=== PATIENT | female | born 1990 | race Two or more races ===

== ENCOUNTER 2022-06-18 10:26 | Observation (INO) | payer MEDICAID ==
[2022-06-18 12:09] LABS: Basophils # (auto) 0 10 ^3/uL (0-0.2); Basophils % (auto) 0.2 % (0.0-2.0); Eosinophils # (auto) 0.1 10 ^3/uL (0-0.8); Eosinophils % (auto) 0.7 % (0.0-7.0); Hematocrit 29.3 % (36.0-46.0); Hemoglobin 10.3 g/dL (12.2-16.2); Lymphocytes # (auto) 1.8 10 ^3/uL (0.4-5.4); Lymphocytes % (auto) 16.4 % (10.0-50.0); Mean Corpuscular Hgb Conc. 35.3 g/dL (32.0-36.0); Mean Corpuscular Volume 87.8 fL (80.0-100.0); Monocytes # (auto) 0.5 10 ^3/uL (0-1.3); Monocytes % (auto) 4.4 % (0.0-12.0); Neutrophils # (auto) 8.6 10 ^3/uL (1.6-8.6); Neutrophils % (auto) 78.3 % (37.0-80.0); Nucleated Red Blood Cells % 0.1 %; Red Blood Cells 3.33 10^6/uL (4.0-5.20)
[2022-06-18 12:20] LABS: INR 0.92 (0.9-1.15); Partial Thromboplastin Time 24.2 sec (24.6-33.4)
[2022-06-18 12:23] LABS: Urine Bacteria NONE SEEN /hpf (None Seen); Urine Blood 1+ /uL (Negative); Urine Specific Gravity 1.008 (1.001-1.035); Urine WBC 3 /hpf (0 - 5)
[2022-06-18 12:45] LABS: Albumin 2.7 g/dL (3.4-5.0); Calcium 8.9 mg/dL (8.5-10.1); Potassium 4.1 mmol/L (3.5-5.1)
[2022-06-18 12:50] LABS: BUN/Creatinine Ratio 21.7; Bilirubin, Total 0.4 mg/dL (0.2-1.0); Total Protein 6.8 g/dL (6.4-8.2); Uric Acid 7.3 mg/dL (2.6-6.0)
[2022-06-18 12:51] LABS: Protein, Urine 193.6 mg/dL (0.0-11.9)
== END 2022-06-18 16:12 | disposition home or self-care (01) ==
LOC: LDRP 10:26 → UNDOADMOB 10:26 → LDRP 10:32
PROVIDERS: ADMIT Obstetrics & Gynecology Obstetrics; ATTEND Obstetrics & Gynecology Obstetrics
DX: O10.912 Unspecified pre-existing hypertension complicating pregnancy, second trimester (principal); O11.2 Pre-existing hypertension with pre-eclampsia, second trimester; Z3A.23 23 weeks gestation of pregnancy
CPT/HCPCS: 36415; 59025; 80053; 81001; 82570; 84156; 84550; 85025; 85610; 85730; 94760; G0378

== ENCOUNTER 2022-06-20 08:33 | Observation (INO) | payer MEDICAID ==
[2022-06-20 10:46] LABS: Protein, Urine 29.8 mg/dL (0.0-11.9)
[2022-06-20 11:35] LABS: Protein, Urine 34.9 mg/dL (0.0-11.9)
== END 2022-06-20 11:10 | disposition home or self-care (01) ==
LOC: LDRP 08:33
PROVIDERS: ADMIT Obstetrics & Gynecology; ATTEND Obstetrics & Gynecology
DX: O13.2 Gestational [pregnancy-induced] hypertension without significant proteinuria, second trimester (principal); O99.332 Smoking (tobacco) complicating pregnancy, second trimester; F17.200 Nicotine dependence, unspecified, uncomplicated; Z3A.23 23 weeks gestation of pregnancy
CPT/HCPCS: 82570; 84156; G0378; 59025; 81002

== ENCOUNTER 2022-06-25 09:09 | Observation (INO) | payer MEDICAID | END 2022-06-25 18:06 | disposition home or self-care (01) | LOC: LDRP 16:07 → UNDOADMOB 16:07 → LDRP 16:09 | PROVIDERS: ADMIT Obstetrics & Gynecology Obstetrics; ATTEND Obstetrics & Gynecology Obstetrics | DX: O13.2 Gestational [pregnancy-induced] hypertension without significant proteinuria, second trimester (principal); Z3A.24 24 weeks gestation of pregnancy | CPT/HCPCS: 59025; 76818; G0378 ==

== ENCOUNTER 2022-06-28 11:49 | Observation (INO) | payer MEDICAID ==
[2022-06-28] MEDS ORDERED: PREN1TAB71 OR (17:18)
== END 2022-06-28 17:56 | disposition home or self-care (01) ==
LOC: LDRP 15:45
PROVIDERS: ADMIT Obstetrics & Gynecology; ATTEND Obstetrics & Gynecology
DX: O10.912 Unspecified pre-existing hypertension complicating pregnancy, second trimester (principal); O12.12 Gestational proteinuria, second trimester; O13.2 Gestational [pregnancy-induced] hypertension without significant proteinuria, second trimester; Z3A.24 24 weeks gestation of pregnancy
CPT/HCPCS: 59025; 76818; 81002; 94760; G0378